=== PATIENT | female | born 1945 | race Caucasian/White ===

== ENCOUNTER 2018-10-03 08:21 | Inpatient (IN) ==
[2018-10-03] MEDS ORDERED: LACTATED RINGERS 1,000 ML IV ONE ×2 (09:20→11:45)
[2018-10-03] MEDS ORDERED: AZITHROMYCIN INJ 500 MG in SODIUM CHLORIDE 0.9% 250 ML IV STA (09:56)
[2018-10-03 09:59] LABS: Basophils % 0.2 % (0.0-0.8); Hematocrit 34.8 VOL% (35.7-47.0); Hemoglobin 10.8 GM/DL (12.0-16.0); Immature Granulocytes % 1.1 %; Immature Granulocytes Absolute 0.17 #; Lymphocytes # 0.8 10*3/uL (1.4-4.0); Lymphocytes % 5.4 % (21.3-54.2); Mean Corpuscular Hemoglobin 29 PG (27-34); Mean Platelet Volume 10.1 FL (9.6-12.0); Monocytes % 6.7 % (1.7-12.7); Neutrophils # 13.3 10*3/uL (1.4-7.4); Neutrophils % 86.6 % (38.7-73.9); Platelet Count 585 T/CUMM (130-400); Red Blood Count 3.74 MC/CUMM (3.8-5.5); Red Cell Distribution Width 14.5 % (9.3-17.3); White Blood Count 15.3 T/CUMM (4-12)
[2018-10-03 10:24] LABS: Alanine Aminotransferase 34 U/L (13-56); Albumin 2.8 G/DL (3.4-5.0); Alkaline Phosphatase 163 U/L (45-117); Aspartate Amino Transferase 71 U/L (0-37); Blood Urea Nitrogen 57 MG/DL (7-18); Calcium 8.8 MG/DL (8.5-10.1); Glucose 98 MG/DL (74-106); Osmolality,Calculated 277.7 MOS/KG (273-304); Sodium 131 MMOL/L (136-145); Total Protein 6.4 G/DL (6.4-8.3)
[2018-10-03 10:25] LABS: Lactic Acid 2.4 MMOL/L (0.4-2.0)
[2018-10-03 10:27] LABS: Potassium 6.4 MMOL/L (3.5-5.1)
[2018-10-03] MEDS ORDERED: CALCIUM GLUCONATE 1,000 MG in SODIUM CHLORIDE 0.9% 100 ML IV ONE (10:33)
[2018-10-03] MEDS ORDERED: cefTRIAXone 1,000 MG in SODIUM CHLORIDE 0.9% 100 ML IV STA (10:33)
[2018-10-03] MEDS ORDERED: INSULIN REGULAR 100 UNIT/ML IV STA (10:34)
[2018-10-03] MEDS ORDERED: ASPIRIN CHEW 81 MG TABLET PO STA (10:34)
[2018-10-03] MEDS ORDERED: DEXTROSE 50% 25 GM/50 ML VIAL IV STA (10:34)
[2018-10-03] MEDS ORDERED: HEPARIN 5,000 UNIT/1 ML VIAL IV ONE ×2 (10:48→18:27)
[2018-10-03] MEDS ORDERED: CLOPIDOGREL 300 MG TABLET PO STA (10:49)
[2018-10-03] MEDS ORDERED: ASPIRIN 325 MG TABLET ONE ×3 (10:54→10:59)
[2018-10-03] MEDS ORDERED: NOREPINEPHRINE 8 MG in SODIUM CHLORIDE 0.9% 242 ML IV STA (11:07)
[2018-10-03] MEDS ORDERED: SODIUM CHLORIDE 0.9% 500 ML IV STA (11:26)
[2018-10-03] MEDS ORDERED: predniSONE 5 MG TABLET PO SCH (11:30)
[2018-10-03] MEDS ORDERED: DEXTROSE 50% 25 GM/50 ML SYRINGE IV ONE (11:43)
[2018-10-03] MEDS ORDERED: predniSONE 10 MG TABLET ONE (12:02)
[2018-10-03 12:04] LABS: INR 1.1; PT Patient Result 12.4 SECS; Partial Thromboplastin Time < 21.0 SECS (0-40)
[2018-10-03] MEDS: HEPARIN DRIP 25,000 UNITS/500 ML PREMIX IV SCH (12:37)
[2018-10-03] MEDS ORDERED: MORPHINE 4 MG/1 ML VIAL IV PRN (13:35)
[2018-10-03] MEDS ORDERED: MEROPENEM 1,000 MG in SODIUM CHLORIDE 0.9% 100 ML IV SCH (13:35)
[2018-10-03] MEDS ORDERED: ACETAMINOPHEN 325 MG TABLET PO PRN (13:35)
[2018-10-03] MEDS: SODIUM CHLORIDE 0.9% 1,000 ML IV SCH (13:40)
[2018-10-03] MEDS ORDERED: LEVOFLOXACIN INJ 500 MG in PREMIX 1 EACH IV SCH (14:00)
[2018-10-03 14:41] LABS: Lactic Acid 2.9 MMOL/L (0.4-2.0)
[2018-10-03] MEDS: SODIUM POLYSTYRENE SULFATE 15 GM/60 ML BOTTLE PO SCH ×2 (14:51→18:00)
[2018-10-03] MEDS: HYDROCORTISONE 100 MG VIAL IV SCH ×2 (14:51→20:24)
[2018-10-03] MEDS: PANTOPRAZOLE 40 MG TABLET PO SCH (14:53)
[2018-10-03] MEDS: MEROPENEM 1,000 MG in SODIUM CHLORIDE 0.9% 100 ML IV SCH (14:56)
[2018-10-03] MEDS: ONDANSETRON 4 MG/2 ML VIAL IV PRN (16:30)
[2018-10-03] MEDS: ALLOPURINOL 100 MG TABLET PO SCH (20:25)
[2018-10-04] MEDS: MEROPENEM 1,000 MG in SODIUM CHLORIDE 0.9% 100 ML IV SCH ×2 (01:36→13:10)
[2018-10-04] MEDS: SODIUM CHLORIDE 0.9% 1,000 ML IV SCH (03:30)
[2018-10-04 04:07] LABS: ABG Base Excess -12.2 MMOL/L (-2.5-2.5); ABG HCO3 11.8 MMOL/L (20-26); ABG Oxygen Saturation 96.5 % (95-100); ABG PCO2 22.4 MM HG (35-48); ABG PH 7.341 (7.35-7.45); ABG PO2 95.6 MM HG (80-95); ABG TCO2 12.5 MMOL/L (23-27); Allen Test Positive
[2018-10-04] MEDS: HYDROCORTISONE 100 MG VIAL IV SCH ×3 (05:43→20:43)
[2018-10-04 05:47] LABS: Basophils % 0.2 % (0.0-0.8); Immature Granulocytes % 1.9 %; Immature Granulocytes Absolute 0.23 #; Lymphocytes # 0.4 10*3/uL (1.4-4.0); Lymphocytes % 3.6 % (21.3-54.2); Mean Corpuscular HGB Conc 32.1 GM/DL (32-36); Mean Corpuscular Hemoglobin 29 PG (27-34); Mean Corpuscular Volume 91.5 FL (87-102); Mean Platelet Volume 10.2 FL (9.6-12.0); Monocytes # 0.4 10*3/uL (0.11-0.8); Monocytes % 2.9 % (1.7-12.7); Neutrophils # 11.3 10*3/uL (1.4-7.4); Neutrophils % 91.4 % (38.7-73.9); Platelet Count 469 T/CUMM (130-400); Red Blood Count 3.06 MC/CUMM (3.8-5.5); Red Cell Distribution Width 14.3 % (9.3-17.3); White Blood Count 12.4 T/CUMM (4-12)
[2018-10-04 06:04] LABS: Osmolality,Calculated 275.8 MOS/KG (273-304)
[2018-10-04 06:07] LABS: Potassium 6.2 MMOL/L (3.5-5.1)
[2018-10-04 06:08] LABS: Troponin I 13.6 NG/ML (0.00-0.045)
[2018-10-04 06:10] LABS: Risk Ratio 4.07; Thyroid Stimulating Hormone 3.11 uIU/ml (0.358-3.74); VLDL CHOLESTEROL 16.6 MG/DL
[2018-10-04] MEDS ORDERED: SODIUM POLYSTYRENE SULFATE 15 GM/60 ML BOTTLE PO STA (06:16)
[2018-10-04] MEDS ORDERED: SODIUM POLYSTYRENE SULFATE 15 GM/60 ML BOTTLE ONE (06:17)
[2018-10-04 06:20] LABS: Lactic Acid 1.2 MMOL/L (0.4-2.0)
[2018-10-04] MEDS: LEVOTHYROXINE 50 MCG TABLET PO SCH (06:29)
[2018-10-04] MEDS ORDERED: HEPARIN 5,000 UNIT/1 ML VIAL IV ONE (07:01)
[2018-10-04 07:07] LABS: Band Neutrophils 13 % (0-10); Platelet Estimate Normal; Segmented Neutrophils 85 % (50-85); Total Cells Counted 100
[2018-10-04 07:08] LABS: Anisocytosis 1+; Macrocytosis Slight; Ovalocytes Few; Poikilocytosis 2+; Polychromasia Slight
[2018-10-04] MEDS: PANTOPRAZOLE 40 MG TABLET PO SCH (08:29)
[2018-10-04] MEDS: CLOPIDOGREL 75 MG TABLET PO SCH (08:29)
[2018-10-04] MEDS: ALLOPURINOL 100 MG TABLET PO SCH ×2 (08:29→20:43)
[2018-10-04] MEDS: HEPARIN DRIP 25,000 UNITS/500 ML PREMIX IV SCH (12:31)
[2018-10-04] MEDS: SODIUM CHLORIDE 23.4% CONC INJ 38.5 MEQ, SODIUM BICARB INJ 100 MEQ in STERILE WATER INJ... IV SCH (13:49)
[2018-10-05] MEDS: HEPARIN DRIP 25,000 UNITS/500 ML PREMIX IV SCH (00:13)
[2018-10-05] MEDS: SODIUM CHLORIDE 23.4% CONC INJ 38.5 MEQ, SODIUM BICARB INJ 100 MEQ in STERILE WATER INJ... IV SCH ×2 (04:43→20:08)
[2018-10-05] MEDS: HYDROCORTISONE 100 MG VIAL IV SCH ×2 (05:33→16:58)
[2018-10-05 05:53] LABS: Basophils % 0.1 % (0.0-0.8); Hematocrit 25.2 VOL% (35.7-47.0); Immature Granulocytes % 1.5 %; Immature Granulocytes Absolute 0.12 #; Lymphocytes # 0.4 10*3/uL (1.4-4.0); Lymphocytes % 4.4 % (21.3-54.2); Mean Corpuscular HGB Conc 31.7 GM/DL (32-36); Mean Corpuscular Hemoglobin 29 PG (27-34); Mean Corpuscular Volume 90.6 FL (87-102); Monocytes # 0.4 10*3/uL (0.11-0.8); Monocytes % 4.3 % (1.7-12.7); Neutrophils # 7.3 10*3/uL (1.4-7.4); Neutrophils % 89.7 % (38.7-73.9); Platelet Count 457 T/CUMM (130-400); Red Blood Count 2.78 MC/CUMM (3.8-5.5); Red Cell Distribution Width 14.3 % (9.3-17.3); White Blood Count 8.2 T/CUMM (4-12)
[2018-10-05] MEDS: LEVOTHYROXINE 50 MCG TABLET PO SCH (06:03)
[2018-10-05 06:08] LABS: Calcium 7.4 MG/DL (8.5-10.1); Osmolality,Calculated 285.2 MOS/KG (273-304); Potassium 3.9 MMOL/L (3.5-5.1)
[2018-10-05 06:18] LABS: Band Neutrophils 1 % (0-10); Hypochromasia 1+; Lymphocytes 2 % (20-55); Myelocytes 1 %; Nucleated Red Blood Cells 1 (0-5); Segmented Neutrophils 93 % (50-85); Total Cells Counted 100
[2018-10-05 06:19] LABS: Macrocytosis Slight; Ovalocytes Few
[2018-10-05 06:20] LABS: Polychromasia Slight
[2018-10-05] MEDS: CLOPIDOGREL 75 MG TABLET PO SCH (08:26)
[2018-10-05] MEDS: PANTOPRAZOLE 40 MG TABLET PO SCH (08:26)
[2018-10-05] MEDS: ALLOPURINOL 100 MG TABLET PO SCH ×2 (08:26→20:34)
[2018-10-05] MEDS ORDERED: MAGNESIUM SULF RIDER 4 GM in PREMIX 1 EACH IV ONE (09:00)
[2018-10-05] MEDS ORDERED: MAGNESIUM SULF RIDER 2 GM in PREMIX 1 EACH IV ONE (09:00)
[2018-10-05] MEDS: LEVOFLOXACIN 750 MG TABLET PO SCH (09:45)
[2018-10-05] MEDS: ENOXAPARIN 40 MG/0.4 ML SYRINGE SUBCUT SCH (09:45)
[2018-10-05] MEDS ORDERED: FUROSEMIDE 40 MG/4 ML VIAL IV PRN (11:14)
[2018-10-05] MEDS: MEROPENEM 1,000 MG in SODIUM CHLORIDE 0.9% 100 ML IV SCH ×2 (14:39)
[2018-10-06] MEDS: MEROPENEM 1,000 MG in SODIUM CHLORIDE 0.9% 100 ML IV SCH ×2 (01:58→12:54)
[2018-10-06] MEDS: HYDROCORTISONE 100 MG VIAL IV SCH ×2 (05:09→17:51)
[2018-10-06] MEDS: LEVOTHYROXINE 50 MCG TABLET PO SCH (06:01)
[2018-10-06 06:39] LABS: Calcium 7.1 MG/DL (8.5-10.1); Osmolality,Calculated 287.5 MOS/KG (273-304)
[2018-10-06] MEDS: ALLOPURINOL 100 MG TABLET PO SCH ×2 (09:25→21:13)
[2018-10-06] MEDS: ENOXAPARIN 40 MG/0.4 ML SYRINGE SUBCUT SCH (09:25)
[2018-10-06] MEDS: PANTOPRAZOLE 40 MG TABLET PO SCH (09:25)
[2018-10-06] MEDS: CLOPIDOGREL 75 MG TABLET PO SCH (09:25)
[2018-10-06] MEDS: SODIUM CHLORIDE 23.4% CONC INJ 38.5 MEQ, SODIUM BICARB INJ 100 MEQ in STERILE WATER INJ... IV SCH (17:54)
[2018-10-06] MEDS: CARVEDILOL 3.125 MG TABLET PO SCH (21:13)
[2018-10-07] MEDS: MEROPENEM 1,000 MG in SODIUM CHLORIDE 0.9% 100 ML IV SCH ×2 (00:48→12:10)
[2018-10-07 05:34] LABS: Basophils % 0.1 % (0.0-0.8); Hematocrit 25.1 VOL% (35.7-47.0); Hemoglobin 8.4 GM/DL (12.0-16.0); Immature Granulocytes % 2.8 %; Immature Granulocytes Absolute 0.52 #; Lymphocytes # 0.5 10*3/uL (1.4-4.0); Lymphocytes % 2.8 % (21.3-54.2); Mean Corpuscular HGB Conc 33.5 GM/DL (32-36); Mean Corpuscular Hemoglobin 30 PG (27-34); Mean Corpuscular Volume 89.3 FL (87-102); Mean Platelet Volume 9.9 FL (9.6-12.0); Monocytes # 1.2 10*3/uL (0.11-0.8); Monocytes % 6.3 % (1.7-12.7); NRBC # 0.07 10*3/uL; Neutrophils # 16.6 10*3/uL (1.4-7.4); Platelet Count 307 T/CUMM (130-400); Red Blood Count 2.81 MC/CUMM (3.8-5.5); Red Cell Distribution Width 14.2 % (9.3-17.3); White Blood Count 18.8 T/CUMM (4-12)
[2018-10-07 05:40] LABS: Calcium 7.1 MG/DL (8.5-10.1); Osmolality,Calculated 289.2 MOS/KG (273-304); Potassium 3.9 MMOL/L (3.5-5.1)
[2018-10-07 06:08] LABS: Band Neutrophils 1 % (0-10); Lymphocytes 4 % (20-55); Platelet Estimate Adequate; Segmented Neutrophils 88 % (50-85); Total Cells Counted 100
[2018-10-07 06:09] LABS: Hypochromasia 1+; Macrocytosis Slight; Ovalocytes Slight
[2018-10-07] MEDS: HYDROCORTISONE 100 MG VIAL IV SCH ×2 (06:20→16:43)
[2018-10-07] MEDS: LEVOTHYROXINE 50 MCG TABLET PO SCH (06:20)
[2018-10-07] MEDS: CLOPIDOGREL 75 MG TABLET PO SCH (09:13)
[2018-10-07] MEDS: LEVOFLOXACIN 750 MG TABLET PO SCH (09:14)
[2018-10-07] MEDS: ALLOPURINOL 100 MG TABLET PO SCH ×2 (09:14→22:09)
[2018-10-07] MEDS: PANTOPRAZOLE 40 MG TABLET PO SCH (09:15)
[2018-10-07] MEDS: CARVEDILOL 3.125 MG TABLET PO SCH ×2 (09:15→22:09)
[2018-10-07] MEDS: HEPARIN 5,000 UNIT/1 ML VIAL SUBCUT SCH ×2 (09:51→22:20)
[2018-10-07] MEDS: ASCORBIC ACID 500 MG TABLET PO SCH ×2 (12:09→22:09)
[2018-10-08] MEDS: MEROPENEM 1,000 MG in SODIUM CHLORIDE 0.9% 100 ML IV SCH ×2 (02:39→12:46)
[2018-10-08 04:45] LABS: Basophils % 0.1 % (0.0-0.8); Hematocrit 25.1 VOL% (35.7-47.0); Immature Granulocytes % 2.6 %; Immature Granulocytes Absolute 0.44 #; Lymphocytes # 0.5 10*3/uL (1.4-4.0); Lymphocytes % 2.6 % (21.3-54.2); Mean Corpuscular HGB Conc 31.9 GM/DL (32-36); Mean Corpuscular Hemoglobin 29 PG (27-34); Mean Corpuscular Volume 90.9 FL (87-102); Mean Platelet Volume 10.2 FL (9.6-12.0); Monocytes % 5.7 % (1.7-12.7); NRBC # 0.07 10*3/uL; Neutrophils # 15.3 10*3/uL (1.4-7.4); Platelet Count 322 T/CUMM (130-400); Red Blood Count 2.76 MC/CUMM (3.8-5.5); Red Cell Distribution Width 14.5 % (9.3-17.3); White Blood Count 17.1 T/CUMM (4-12)
[2018-10-08 04:58] LABS: Calcium 7.3 MG/DL (8.5-10.1); Osmolality,Calculated 296.2 MOS/KG (273-304); Potassium 3.9 MMOL/L (3.5-5.1)
[2018-10-08 05:25] LABS: Band Neutrophils 2 % (0-10); Hypochromasia 2+; Lymphocytes 4 % (20-55); Platelet Estimate Normal; Segmented Neutrophils 88 % (50-85); Total Cells Counted 100
[2018-10-08] MEDS: HYDROCORTISONE 100 MG VIAL IV SCH ×2 (06:42→17:01)
[2018-10-08] MEDS: LEVOTHYROXINE 50 MCG TABLET PO SCH (06:42)
[2018-10-08] MEDS: ASCORBIC ACID 500 MG TABLET PO SCH ×2 (08:49→21:13)
[2018-10-08] MEDS: CLOPIDOGREL 75 MG TABLET PO SCH (08:49)
[2018-10-08] MEDS: ALLOPURINOL 100 MG TABLET PO SCH ×2 (08:49→21:13)
[2018-10-08] MEDS: PANTOPRAZOLE 40 MG TABLET PO SCH (08:49)
[2018-10-08] MEDS: HEPARIN 5,000 UNIT/1 ML VIAL SUBCUT SCH ×2 (08:51→21:13)
[2018-10-08] MEDS: CARVEDILOL 3.125 MG TABLET PO SCH (08:55)
[2018-10-08] MEDS: METOPROLOL TARTRATE 50 MG TABLET PO SCH (21:13)
[2018-10-09] MEDS: MEROPENEM 1,000 MG in SODIUM CHLORIDE 0.9% 100 ML IV SCH (01:25)
[2018-10-09] MEDS: HYDROCORTISONE 100 MG VIAL IV SCH (05:32)
[2018-10-09 05:50] LABS: Basophils % 0.1 % (0.0-0.8); Hematocrit 24.8 VOL% (35.7-47.0); Hemoglobin 7.9 GM/DL (12.0-16.0); Immature Granulocytes % 2.1 %; Immature Granulocytes Absolute 0.36 #; Lymphocytes # 0.5 10*3/uL (1.4-4.0); Lymphocytes % 3.1 % (21.3-54.2); Mean Corpuscular HGB Conc 31.9 GM/DL (32-36); Mean Corpuscular Hemoglobin 29 PG (27-34); Mean Corpuscular Volume 91.9 FL (87-102); Mean Platelet Volume 10.2 FL (9.6-12.0); Monocytes # 0.9 10*3/uL (0.11-0.8); Monocytes % 4.9 % (1.7-12.7); Neutrophils # 15.7 10*3/uL (1.4-7.4); Neutrophils % 89.8 % (38.7-73.9); Platelet Count 332 T/CUMM (130-400); Red Cell Distribution Width 15.1 % (9.3-17.3); White Blood Count 17.5 T/CUMM (4-12)
[2018-10-09] MEDS: LEVOTHYROXINE 50 MCG TABLET PO SCH (06:06)
[2018-10-09 06:25] LABS: Lymphocytes 1 % (20-55); Platelet Estimate Normal; Polychromasia Few; Segmented Neutrophils 96 % (50-85); Total Cells Counted 100
[2018-10-09] MEDS ORDERED: LIDOCAINE 1%/EPI INJ 20 ML VIAL ONE (09:35)
[2018-10-09] MEDS ORDERED: HEPARIN 5,000 UNIT/1 ML VIAL ONE (09:40)
[2018-10-09 10:19] LABS: Hepatitis A Ab IgM Result Negative (Negative); Hepatitis B Core IgM Quant 0.06 Index; Hepatitis B Core IgM Result Negative (Negative); Hepatitis B Surface Ag Quant 0.52 Index; Hepatitis B Surface Ag Result Negative (Negative); Hepatitis C Virus Ab Quant < 0.02 Index; Hepatitis C Virus Ab Result Negative (Negative)
[2018-10-09] MEDS ORDERED: fentaNYL 100 MCG/2 ML VIAL ONE (11:14)
[2018-10-09] MEDS ORDERED: MIDAZOLAM 2 MG/2 ML VIAL ONE (11:14)
[2018-10-09] MEDS ORDERED: SODIUM CHLORIDE 0.9% 250 ML IV ONE (11:14)
[2018-10-09] MEDS ORDERED: HEPARIN 10,000 UNIT/10 ML VIAL IV SCH (13:00)
[2018-10-09] MEDS: HEPARIN 5,000 UNIT/1 ML VIAL SUBCUT SCH ×2 (13:22→22:25)
[2018-10-09] MEDS: METOPROLOL TARTRATE 50 MG TABLET PO SCH ×2 (14:43→22:25)
[2018-10-09] MEDS: ALLOPURINOL 100 MG TABLET PO SCH ×2 (14:44→22:25)
[2018-10-09] MEDS: CLOPIDOGREL 75 MG TABLET PO SCH (14:44)
[2018-10-09] MEDS: PANTOPRAZOLE 40 MG TABLET PO SCH (14:44)
[2018-10-09] MEDS: ASCORBIC ACID 500 MG TABLET PO SCH ×2 (14:44→22:25)
[2018-10-09] MEDS: predniSONE 20 MG TABLET PO SCH (16:00)
[2018-10-09] MEDS: LEVOFLOXACIN 750 MG TABLET PO SCH (16:00)
[2018-10-09] MEDS ORDERED: SODIUM CHLORIDE 0.9% 1,000 ML IV PRN (17:12)
[2018-10-10] MEDS: LEVOTHYROXINE 50 MCG TABLET PO SCH (06:28)
[2018-10-10 06:40] LABS: Basophils % 0.1 % (0.0-0.8); Hematocrit 31.4 VOL% (35.7-47.0); Hemoglobin 9.9 GM/DL (12.0-16.0); Immature Granulocytes % 2.5 %; Immature Granulocytes Absolute 0.51 #; Lymphocytes # 0.4 10*3/uL (1.4-4.0); Lymphocytes % 2.1 % (21.3-54.2); Mean Corpuscular HGB Conc 31.5 GM/DL (32-36); Mean Corpuscular Hemoglobin 29 PG (27-34); Mean Corpuscular Volume 92.6 FL (87-102); Mean Platelet Volume 10.7 FL (9.6-12.0); Monocytes # 1.3 10*3/uL (0.11-0.8); Monocytes % 6.2 % (1.7-12.7); Neutrophils # 18.4 10*3/uL (1.4-7.4); Neutrophils % 89.1 % (38.7-73.9); Platelet Count 213 T/CUMM (130-400); Red Blood Count 3.39 MC/CUMM (3.8-5.5); White Blood Count 20.7 T/CUMM (4-12)
[2018-10-10 08:07] LABS: Anisocytosis 1+; Band Neutrophils 1 % (0-10); Hypochromasia 1+; Lymphocytes 2 % (20-55); Microcytosis 1+; Nucleated Red Blood Cells 3 (0-5); Ovalocytes Slight; Segmented Neutrophils 94 % (50-85); Total Cells Counted 100
[2018-10-10 08:08] LABS: Platelet Estimate Normal; Polychromasia Slight
[2018-10-10] MEDS ORDERED: ALBUMIN 25% 25 GM in PREMIX 1 EACH IV SCH (09:00)
[2018-10-10] MEDS: ACETYLCYSTEINE 20% 800 MG/4 ML VIAL RESP TX SCH ×2 (12:05→20:03)
[2018-10-10] MEDS: ALBUTEROL/IPRATROPIUM 3 ML NEB RESP TX SCH ×2 (12:05→20:03)
[2018-10-10] MEDS: METOPROLOL TARTRATE 50 MG TABLET PO SCH (12:07)
[2018-10-10] MEDS: PANTOPRAZOLE 40 MG TABLET PO SCH (12:07)
[2018-10-10] MEDS: HEPARIN 5,000 UNIT/1 ML VIAL SUBCUT SCH ×2 (12:07→21:24)
[2018-10-10] MEDS: predniSONE 20 MG TABLET PO SCH (14:28)
[2018-10-10] MEDS: ALLOPURINOL 100 MG TABLET PO SCH ×2 (14:28→21:24)
[2018-10-10] MEDS: CLOPIDOGREL 75 MG TABLET PO SCH (14:29)
[2018-10-10] MEDS: ASCORBIC ACID 500 MG TABLET PO SCH ×2 (14:29→21:24)
[2018-10-10] MEDS: CLOTRIMAZOLE 10 MG TROCHE PO SCH ×2 (17:32→21:25)
[2018-10-10] MEDS: BISOPROLOL 5 MG TABLET PO SCH (21:25)
[2018-10-11] MEDS: ALBUTEROL/IPRATROPIUM 3 ML NEB RESP TX SCH ×4 (00:43→19:28)
[2018-10-11] MEDS: ACETYLCYSTEINE 20% 800 MG/4 ML VIAL RESP TX SCH ×4 (00:44→19:28)
[2018-10-11] MEDS: CLOTRIMAZOLE 10 MG TROCHE PO SCH ×5 (06:29→22:00)
[2018-10-11] MEDS: LEVOTHYROXINE 50 MCG TABLET PO SCH (06:34)
[2018-10-11] MEDS: LEVOFLOXACIN 750 MG TABLET PO SCH (09:08)
[2018-10-11] MEDS: PANTOPRAZOLE 40 MG TABLET PO SCH (09:09)
[2018-10-11] MEDS: CLOPIDOGREL 75 MG TABLET PO SCH (09:09)
[2018-10-11] MEDS: ALLOPURINOL 100 MG TABLET PO SCH ×2 (09:09→20:51)
[2018-10-11] MEDS: predniSONE 20 MG TABLET PO SCH (09:09)
[2018-10-11] MEDS: ASCORBIC ACID 500 MG TABLET PO SCH ×2 (09:10→20:51)
[2018-10-11] MEDS: BISOPROLOL 5 MG TABLET PO SCH ×2 (09:10→20:51)
[2018-10-11] MEDS: HEPARIN 5,000 UNIT/1 ML VIAL SUBCUT SCH ×2 (09:11→22:00)
[2018-10-11] MEDS ORDERED: SODIUM CHLORIDE 0.9% 250 ML IV SCH (12:30)
[2018-10-12] MEDS: CLOTRIMAZOLE 10 MG TROCHE PO SCH ×5 (05:35→22:21)
[2018-10-12 05:40] LABS: Basophils % 0.1 % (0.0-0.8); Hematocrit 27.8 VOL% (35.7-47.0); Hemoglobin 8.8 GM/DL (12.0-16.0); Immature Granulocytes % 2.3 %; Immature Granulocytes Absolute 0.58 #; Lymphocytes # 0.5 10*3/uL (1.4-4.0); Mean Corpuscular HGB Conc 31.7 GM/DL (32-36); Mean Corpuscular Hemoglobin 29 PG (27-34); Mean Corpuscular Volume 90.8 FL (87-102); Monocytes # 1.6 10*3/uL (0.11-0.8); Monocytes % 6.3 % (1.7-12.7); NRBC # 0.06 10*3/uL; Neutrophils # 22.9 10*3/uL (1.4-7.4); Neutrophils % 89.3 % (38.7-73.9); Platelet Count 125 T/CUMM (130-400); Red Blood Count 3.06 MC/CUMM (3.8-5.5); White Blood Count 25.6 T/CUMM (4-12)
[2018-10-12 05:58] LABS: Albumin 2.2 G/DL (3.4-5.0); Calcium 7.6 MG/DL (8.5-10.1); Potassium 5.2 MMOL/L (3.5-5.1)
[2018-10-12] MEDS: LEVOTHYROXINE 50 MCG TABLET PO SCH (06:01)
[2018-10-12 06:11] LABS: Band Neutrophils 1 % (0-10); Hypochromasia 1+; Lymphocytes 2 % (20-55); Ovalocytes Slight; Platelet Estimate Normal; Segmented Neutrophils 91 % (50-85); Total Cells Counted 100
[2018-10-12 06:12] LABS: Macrocytosis Slight; Polychromasia Slight
[2018-10-12] MEDS: ALBUTEROL/IPRATROPIUM 3 ML NEB RESP TX SCH ×4 (08:01→20:48)
[2018-10-12] MEDS: ACETYLCYSTEINE 20% 800 MG/4 ML VIAL RESP TX SCH ×4 (08:01→20:48)
[2018-10-12] MEDS: HEPARIN 5,000 UNIT/1 ML VIAL SUBCUT SCH (11:22)
[2018-10-12] MEDS: BISOPROLOL 5 MG TABLET PO SCH ×2 (12:47→22:23)
[2018-10-12] MEDS: PANTOPRAZOLE 40 MG TABLET PO SCH (14:32)
[2018-10-12] MEDS: ALLOPURINOL 100 MG TABLET PO SCH ×2 (14:32→22:21)
[2018-10-12] MEDS: predniSONE 20 MG TABLET PO SCH (14:32)
[2018-10-12] MEDS: ASPIRIN EC 81 MG TABLET PO SCH (14:32)
[2018-10-12] MEDS: CLOPIDOGREL 75 MG TABLET PO SCH (14:32)
[2018-10-12] MEDS: ASCORBIC ACID 500 MG TABLET PO SCH ×2 (14:32→22:21)
[2018-10-12] MEDS: BACITRACIN OINT 0.9 GM PACK TOP SCH (18:11)
[2018-10-12] MEDS: SKIN HEALING OINT (AQUAPHOR) 50 GM TUBE TOP SCH (18:11)
[2018-10-13] MEDS: ALBUTEROL/IPRATROPIUM 3 ML NEB RESP TX SCH ×4 (01:50→20:29)
[2018-10-13] MEDS: ACETYLCYSTEINE 20% 800 MG/4 ML VIAL RESP TX SCH ×4 (01:50→20:28)
[2018-10-13 05:29] LABS: Basophils % 0.2 % (0.0-0.8); Eosinophils # 0.1 10*3/uL (0.0-0.87); Eosinophils % 0.5 % (0.00-10.9); Hematocrit 24.5 VOL% (35.7-47.0); Immature Granulocytes % 3.4 %; Immature Granulocytes Absolute 0.77 #; Lymphocytes # 0.5 10*3/uL (1.4-4.0); Lymphocytes % 2.2 % (21.3-54.2); Mean Corpuscular Hemoglobin 29 PG (27-34); Mean Corpuscular Volume 92.5 FL (87-102); Mean Platelet Volume 11.1 FL (9.6-12.0); Monocytes # 1.4 10*3/uL (0.11-0.8); Monocytes % 6.3 % (1.7-12.7); NRBC # 0.05 10*3/uL; Neutrophils # 19.9 10*3/uL (1.4-7.4); Neutrophils % 87.4 % (38.7-73.9); Platelet Count 106 T/CUMM (130-400); Red Blood Count 2.65 MC/CUMM (3.8-5.5); Red Cell Distribution Width 20.2 % (9.3-17.3); White Blood Count 22.8 T/CUMM (4-12)
[2018-10-13 06:01] LABS: Hemoglobin 7.6 GM/DL (12.0-16.0)
[2018-10-13 06:02] LABS: Albumin 2.4 G/DL (3.4-5.0); Bilirubin,Total 1.4 MG/DL (0.2-1.0); Calcium 7.7 MG/DL (8.5-10.1); Potassium 4.1 MMOL/L (3.5-5.1); Total Protein 4.4 G/DL (6.4-8.3)
[2018-10-13] MEDS: CLOTRIMAZOLE 10 MG TROCHE PO SCH ×4 (06:04→17:38)
[2018-10-13] MEDS: LEVOTHYROXINE 50 MCG TABLET PO SCH (06:04)
[2018-10-13 06:16] LABS: Eosinophils 1 % (0-10); Lymphocytes 2 % (20-55); Platelet Estimate Adequate; Polychromasia Few; Segmented Neutrophils 95 % (50-85); Total Cells Counted 100
[2018-10-13] MEDS ORDERED: ALBUMIN 25% 25 GM in PREMIX 1 EACH IV ONE (10:03)
[2018-10-13] MEDS: BACITRACIN OINT 0.9 GM PACK TOP SCH (10:23)
[2018-10-13] MEDS: ALLOPURINOL 100 MG TABLET PO SCH ×2 (10:23→20:59)
[2018-10-13] MEDS: ASCORBIC ACID 500 MG TABLET PO SCH ×2 (10:23→20:59)
[2018-10-13] MEDS: ASPIRIN EC 81 MG TABLET PO SCH (10:23)
[2018-10-13] MEDS: PANTOPRAZOLE 40 MG TABLET PO SCH (10:25)
[2018-10-13] MEDS: BISOPROLOL 5 MG TABLET PO SCH (10:25)
[2018-10-13] MEDS: predniSONE 20 MG TABLET PO SCH (10:25)
[2018-10-13] MEDS: SKIN HEALING OINT (AQUAPHOR) 50 GM TUBE TOP SCH (10:26)
[2018-10-13] MEDS: CLOPIDOGREL 75 MG TABLET PO SCH (10:26)
[2018-10-13] MEDS: HYDROCORTISONE 100 MG VIAL IV SCH ×2 (10:29→17:38)
[2018-10-13] MEDS: cefTRIAXone 1,000 MG in SYRINGE 1 EACH IV SCH (10:31)
[2018-10-13] MEDS ORDERED: VANCOMYCIN INJ 1,000 MG in SODIUM CHLORIDE 0.9% 250 ML IV ONE (11:00)
[2018-10-13 11:02] LABS: Lactic Acid 3.9 MMOL/L (0.4-2.0)
[2018-10-13] MEDS ORDERED: NOREPINEPHRINE 4 MG/4 ML VIAL IV ONE (11:14)
[2018-10-13] MEDS: NOREPINEPHRINE 16 MG in SODIUM CHLORIDE 0.9% 234 ML IV PRN ×2 (11:20→22:15)
[2018-10-13] MEDS ORDERED: SODIUM CHLORIDE 0.9% 500 ML IV ONE ×2 (11:21→13:00)
[2018-10-13 11:58] LABS: ABG Base Excess 0.1 MMOL/L (-2.5-2.5); ABG HCO3 24.4 MMOL/L (20-26); ABG Oxygen Saturation 93.4 % (95-100); ABG PCO2 36.4 MM HG (35-48); ABG PO2 63.2 MM HG (80-95); ABG TCO2 22.5 MMOL/L (23-27)
[2018-10-13] MEDS ORDERED: SODIUM CHLORIDE 0.9% 1,000 ML IV PRN (11:59)
[2018-10-13] MEDS ORDERED: PHENYLEPHRINE INJ 160 MG in SODIUM CHLORIDE 0.9% 234 ML IV PRN (16:48)
[2018-10-13] MEDS: ONDANSETRON 4 MG/2 ML VIAL IV PRN (20:50)
[2018-10-13] MEDS: ROSUVASTATIN 20 MG TABLET PO SCH (20:59)
[2018-10-14] MEDS: CLOTRIMAZOLE 10 MG TROCHE PO SCH ×6 (00:54→23:41)
[2018-10-14] MEDS: ALBUTEROL/IPRATROPIUM 3 ML NEB RESP TX SCH ×4 (01:58→20:11)
[2018-10-14] MEDS: ACETYLCYSTEINE 20% 800 MG/4 ML VIAL RESP TX SCH ×4 (02:06→20:11)
[2018-10-14] MEDS: HYDROCORTISONE 100 MG VIAL IV SCH ×3 (02:59→19:25)
[2018-10-14 05:44] LABS: Basophils # 0.1 10*3/uL (0.0-0.2); Basophils % 0.3 % (0.0-0.8); Hematocrit 38.3 VOL% (35.7-47.0); Immature Granulocytes % 3.1 %; Immature Granulocytes Absolute 0.93 #; Lymphocytes # 0.2 10*3/uL (1.4-4.0); Lymphocytes % 0.6 % (21.3-54.2); Mean Corpuscular HGB Conc 32.1 GM/DL (32-36); Mean Corpuscular Hemoglobin 29 PG (27-34); Mean Corpuscular Volume 89.7 FL (87-102); Mean Platelet Volume 10.9 FL (9.6-12.0); Monocytes # 1.3 10*3/uL (0.11-0.8); Monocytes % 4.4 % (1.7-12.7); NRBC # 0.05 10*3/uL; Neutrophils % 91.6 % (38.7-73.9); Red Cell Distribution Width 19.5 % (9.3-17.3)
[2018-10-14 05:46] LABS: Hemoglobin 12.3 GM/DL (12.0-16.0); Platelet Count 165 T/CUMM (130-400); Red Blood Count 4.27 MC/CUMM (3.8-5.5); White Blood Count 30.5 T/CUMM (4-12)
[2018-10-14 05:52] LABS: Band Neutrophils 4 % (0-10); Lymphocytes 2 % (20-55); Nucleated Red Blood Cells 1 (0-5); Platelet Estimate Normal; Segmented Neutrophils 87 % (50-85); Total Cells Counted 100
[2018-10-14 05:53] LABS: Hypochromasia 2+; Polychromasia Few
[2018-10-14 06:01] LABS: Potassium 4.9 MMOL/L (3.5-5.1)
[2018-10-14] MEDS: CLOPIDOGREL 75 MG TABLET PO SCH (11:30)
[2018-10-14] MEDS: LEVOTHYROXINE 50 MCG TABLET PO SCH (11:30)
[2018-10-14] MEDS: PANTOPRAZOLE 40 MG TABLET PO SCH (11:30)
[2018-10-14] MEDS: ASCORBIC ACID 500 MG TABLET PO SCH ×2 (11:30→20:56)
[2018-10-14] MEDS: ASPIRIN EC 81 MG TABLET PO SCH (11:30)
[2018-10-14] MEDS: ALLOPURINOL 100 MG TABLET PO SCH ×2 (11:31→20:56)
[2018-10-14] MEDS: BACITRACIN OINT 0.9 GM PACK TOP SCH (11:33)
[2018-10-14] MEDS: SKIN HEALING OINT (AQUAPHOR) 50 GM TUBE TOP SCH (11:33)
[2018-10-14] MEDS ORDERED: ALBUMIN 25% 25 GM in PREMIX 1 EACH IV ONE (12:10)
[2018-10-14] MEDS: cefTRIAXone 1,000 MG in SYRINGE 1 EACH IV SCH (12:13)
[2018-10-14] MEDS: NOREPINEPHRINE 16 MG in SODIUM CHLORIDE 0.9% 234 ML IV PRN (12:20)
[2018-10-14] MEDS ORDERED: VANCOMYCIN INJ 500 MG in SODIUM CHLORIDE 0.9% 100 ML IV PRN (16:00)
[2018-10-14] MEDS: ROSUVASTATIN 20 MG TABLET PO SCH (20:56)
[2018-10-15] MEDS: NOREPINEPHRINE 16 MG in SODIUM CHLORIDE 0.9% 234 ML IV PRN ×2 (00:01→21:48)
[2018-10-15] MEDS: ALBUTEROL/IPRATROPIUM 3 ML NEB RESP TX SCH ×4 (00:51→19:42)
[2018-10-15] MEDS: ACETYLCYSTEINE 20% 800 MG/4 ML VIAL RESP TX SCH ×4 (00:51→19:45)
[2018-10-15] MEDS: HYDROCORTISONE 100 MG VIAL IV SCH ×3 (02:15→17:08)
[2018-10-15 04:37] LABS: Basophils % 0.2 % (0.0-0.8); Hematocrit 35.3 VOL% (35.7-47.0); Hemoglobin 10.8 GM/DL (12.0-16.0); Immature Granulocytes % 1.6 %; Immature Granulocytes Absolute 0.41 #; Lymphocytes # 0.2 10*3/uL (1.4-4.0); Lymphocytes % 0.9 % (21.3-54.2); Mean Corpuscular HGB Conc 30.6 GM/DL (32-36); Mean Corpuscular Hemoglobin 28 PG (27-34); Mean Corpuscular Volume 92.4 FL (87-102); Mean Platelet Volume 10.6 FL (9.6-12.0); Monocytes # 0.8 10*3/uL (0.11-0.8); Monocytes % 3.2 % (1.7-12.7); NRBC # 0.02 10*3/uL; Neutrophils # 24.2 10*3/uL (1.4-7.4); Neutrophils % 94.1 % (38.7-73.9); Platelet Count 148 T/CUMM (130-400); Red Blood Count 3.82 MC/CUMM (3.8-5.5); Red Cell Distribution Width 19.3 % (9.3-17.3); White Blood Count 25.7 T/CUMM (4-12)
[2018-10-15 04:42] LABS: Osmolality,Calculated 286.1 MOS/KG (273-304); Potassium 4.9 MMOL/L (3.5-5.1)
[2018-10-15 05:32] LABS: Band Neutrophils 1 % (0-10); Hypochromasia 1+; Lymphocytes 1 % (20-55); Ovalocytes Slight; Platelet Estimate Normal; Segmented Neutrophils 96 % (50-85); Total Cells Counted 100
[2018-10-15] MEDS: CLOTRIMAZOLE 10 MG TROCHE PO SCH ×3 (06:18→15:00)
[2018-10-15] MEDS: LEVOTHYROXINE 50 MCG TABLET PO SCH (06:18)
[2018-10-15] MEDS: ASCORBIC ACID 500 MG TABLET PO SCH ×2 (08:20→20:28)
[2018-10-15] MEDS: ALLOPURINOL 100 MG TABLET PO SCH ×2 (08:20→20:28)
[2018-10-15] MEDS: PANTOPRAZOLE 40 MG TABLET PO SCH (08:21)
[2018-10-15] MEDS: SKIN HEALING OINT (AQUAPHOR) 50 GM TUBE TOP SCH (08:21)
[2018-10-15] MEDS: CLOPIDOGREL 75 MG TABLET PO SCH (08:21)
[2018-10-15] MEDS: BACITRACIN OINT 0.9 GM PACK TOP SCH (08:21)
[2018-10-15] MEDS: ASPIRIN EC 81 MG TABLET PO SCH (08:21)
[2018-10-15] MEDS: cefTRIAXone 1,000 MG in SYRINGE 1 EACH IV SCH (09:30)
[2018-10-15] MEDS ORDERED: ALBUMIN 25% 25 GM in PREMIX 1 EACH IV ONE (16:36)
[2018-10-15] MEDS: ONDANSETRON 4 MG/2 ML VIAL IV PRN (18:15)
[2018-10-15] MEDS: ROSUVASTATIN 20 MG TABLET PO SCH (20:28)
[2018-10-15] MEDS ORDERED: MELATONIN 3 MG TABLET PO ONE (22:00)
[2018-10-16] MEDS: ACETYLCYSTEINE 20% 800 MG/4 ML VIAL RESP TX SCH ×4 (01:42→12:34)
[2018-10-16] MEDS: ALBUTEROL/IPRATROPIUM 3 ML NEB RESP TX SCH ×4 (01:42→12:35)
[2018-10-16] MEDS: HYDROCORTISONE 100 MG VIAL IV SCH ×2 (02:16→09:41)
[2018-10-16 05:13] VITALS: BP 90/56
[2018-10-16 05:49] LABS: Basophils % 0.2 % (0.0-0.8); Hematocrit 32.2 VOL% (35.7-47.0); Hemoglobin 9.6 GM/DL (12.0-16.0); Immature Granulocytes % 1.8 %; Immature Granulocytes Absolute 0.43 #; Lymphocytes # 0.2 10*3/uL (1.4-4.0); Lymphocytes % 0.8 % (21.3-54.2); Mean Corpuscular HGB Conc 29.8 GM/DL (32-36); Mean Corpuscular Hemoglobin 28 PG (27-34); Mean Corpuscular Volume 94.2 FL (87-102); Mean Platelet Volume 10.6 FL (9.6-12.0); Monocytes # 1.4 10*3/uL (0.11-0.8); Monocytes % 5.8 % (1.7-12.7); NRBC # 0.03 10*3/uL; Neutrophils # 21.4 10*3/uL (1.4-7.4); Neutrophils % 91.4 % (38.7-73.9); Platelet Count 180 T/CUMM (130-400); Red Blood Count 3.42 MC/CUMM (3.8-5.5); Red Cell Distribution Width 19.4 % (9.3-17.3); White Blood Count 23.4 T/CUMM (4-12)
[2018-10-16 06:03] LABS: Calcium 7.8 MG/DL (8.5-10.1); Osmolality,Calculated 295.1 MOS/KG (273-304); Potassium 5.1 MMOL/L (3.5-5.1)
[2018-10-16] MEDS: LEVOTHYROXINE 50 MCG TABLET PO SCH (06:12)
[2018-10-16 06:20] LABS: Band Neutrophils 3 % (0-10); Lymphocytes 1 % (20-55); Platelet Estimate Normal; Segmented Neutrophils 91 % (50-85); Total Cells Counted 100
[2018-10-16] MEDS ORDERED: VANCOMYCIN INJ 500 MG in SODIUM CHLORIDE 0.9% 100 ML IV ONE (09:30)
[2018-10-16] MEDS: ASPIRIN EC 81 MG TABLET PO SCH (09:40)
[2018-10-16] MEDS: ASCORBIC ACID 500 MG TABLET PO SCH (09:40)
[2018-10-16] MEDS: CLOPIDOGREL 75 MG TABLET PO SCH (09:40)
[2018-10-16] MEDS: PANTOPRAZOLE 40 MG TABLET PO SCH (09:41)
[2018-10-16] MEDS: ONDANSETRON 4 MG/2 ML VIAL IV PRN ×2 (09:41→13:55)
[2018-10-16] MEDS: ALLOPURINOL 100 MG TABLET PO SCH (09:41)
[2018-10-16] MEDS: SKIN HEALING OINT (AQUAPHOR) 50 GM TUBE TOP SCH (09:42)
[2018-10-16] MEDS: BACITRACIN OINT 0.9 GM PACK TOP SCH (09:43)
[2018-10-16] MEDS: cefTRIAXone 1,000 MG in SYRINGE 1 EACH IV SCH ×2 (11:48→14:30)
[2018-10-16] MEDS: NOREPINEPHRINE 16 MG in SODIUM CHLORIDE 0.9% 234 ML IV PRN (15:27)
== END 2018-10-16 16:07 | disposition expired | DRG 871 ==
LOC: N.ED 08:21 → SUATTDRO 11:23 → N.EDINP 11:23 → N.CC 12:45 → N.TELEN 10-05 18:40 → N.CC 10-13 10:59
PROVIDERS: ADMIT Internal Medicine; ATTEND Internal Medicine